=== PATIENT | female | born 1980 | race Native Hawaiian/Other Pacific Islander ===

== ENCOUNTER 2022-08-04 09:37 | Day surgery (SDC) | payer OTHER, SELFPAY ==
[2022-08-04] VITALS (14 sets, daily range): BP systolic 123–168; BP diastolic 63–74; PULSE 54–79; RESP 16–18; TEMP 36.2–36.7; O2SAT 97–100; BMI 27.5; BMI 29.7
--- NOTE | 2022-08-04 09:52 | ED_ITS ---
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 They got caught in the machine. She can feel sensation but is having significant pain. Would appreciate some ibuprofen. She is unsure of her tetanus status. Nursing staff did look in the [facility] chart and it was last given in 2012. We will update that. It is at the end of her left 2nd and 3rd digits. Nothing else was injured. She is seen with the assistance of the middle school technology teacher. This is a worker's compensation injury. Place: work Patient tetanus UTD: No Context: accidental and crush injury Associated symptoms: pain Related Data Home Medications Medication Instructions Recorded Confirmed No Known Home Medications 08/04/22 08/04/22 Allergies Allergy/AdvReac Type Severity Reaction Status Date / Time No Known Drug Allergies Allergy Verified 08/04/22 10:00 Review of Systems Status of ROS: Reports: 10 or more systems reviewed and unremarkable except as noted in History and below (Done when it was decided she would be going to the OR) and other (Coffee and a bit of bread around 7:00 a.m. this morning) Narrative: As per HPI PFSH PFSH Social History Smoking Status: Never smoker Do you use any of these nicotine containing products: None Second hand tobacco smoke exposure: No How often do you have a drink containing alcohol: never How often do you have six or more drinks on one occasion: Never AUDIT-C Alcohol total score: 0 Non-prescribed substance use: denies use service: No Exam Const: Vital Signs, click to edit/add: Vital Signs - 24 hr 08/04/22 09:57 Temperature 97.8 F Pulse Rate [Right Pulse Oximeter] 64 Respiratory Rate 18 Blood Pressure [Ri ght Upper Arm] 131/63 Pulse Oximetry 98 Oxygen Delivery Me thod Room Air Documenting provider has reviewed patient's vital signs: yes Common normals: no apparent distress, average body habitus, oriented x3, no limitations, healthy appearing, alert and well nourished Other: The left 2nd and 3rd fingers have subungual hematomas, there was lifting of the base of the nail of the 3rd finger. Right nail seems to be intact but there is some loss of the cuticle around the lateral nail bed of the 2nd finger. There is some bleeding from the base of the nail of the right 3rd finger. Seems to be the distal portions of these fingers that are involved. Does not seem to have pain below the distal phalanges of these fingers. Neurovascular is intact at this time. HENMT: Common normals: normocephalic, head/scalp atraumatic, hearing grossly normal bilaterally, external nose normal, moist oral mucous membranes, oropharynx normal, dentition normal and gingiva normal Head and scalp: normocephalic and atraumatic Nose: external nose normal Eye: Common normals: PERRL, EOMs intact bilaterally, conjunctivae normal and no scleral icterus Conjunctiva: conjunctiva(e) normal Pupil: PERRL Neck & C-Spine: Common normals: full ROM, no lymphadenopathy, supple, no meningeal signs, no JVD and thyroid normal Thyroid: thyroid normal Resp: Common normals: normal respiratory effort, no retractions, no use of accessory muscles and clear to auscultation bilaterally Auscultation: clear to auscultation bilaterally Cardio: Common normals: no JVD, regular rate, regular rhythm, S1 normal heart sound, S2 normal heart sound, no gallops, no clicks and no murmurs Rate: regular rate Rhythm: regular rhythm Heart sounds: S1 normal and S2 normal GI: Common normals: Normal to inspection, nondistended, normoactive bowel sounds present, soft to palpation and non-tender Palpation: soft Neuro: Common normals: oriented x3 Sensorium/orientation: alert Meningeal signs: no meningeal signs Course Course Hospital Course: We will x-ray these fingers looking for fractures. Have a phone call in to Orthopedics regarding this 3rd finger with the injury likely to the nail plate. Will visualize her x-rays of the fingers but do think that she may benefit from relief of the subungual hematoma of the 2nd digit. ED nail base is lifted up on the 3rd finger allowing for some extravasation of blood, there is still subungual hematoma of this finger as well. Reevaluation(s) Reevaluation #1: Have just finished reviewing with patient with the orthopedist Dr. Valencia present at this time. She has tuft fractures of the left 2nd and 3rd phalanx, patient is right-hand dominant. There is obvious nail plate injury on the 3rd finger, likely on the 2nd. Reviewing this with Orthopedics, they will plan on taking her to the OR this afternoon for repair of the nail plates. We will hold on the ibuprofen, start IV Toradol for pain management, have her be NPO. Have subsequently went over review of systems with her. As far as her past medical history, she has had a cholecystectomy, prior C-sections and a tubal ligation. Denies any chronic heart or lung issues. Has not been ill with anything. Other review systems as above. Based on my assessment of this patient, she is clear for trial of anesthesia as indicated for repair of these nail plate injuries with plan to be done with local. Time: 10:51 Vital Signs Vital signs: Initial Vital Signs Temperature 97.8 F 08/04/22 09:57 Temperature Source Temporal Artery Scan 08/04/22 09:57 Pulse Rate 64 08/04/22 09:57 Respiratory Rate 18 08/04/22 09:57 Blood Pressure 131/63 08/04/22 09:57 Blood Pressure Mean 85 08/04/22 09:57 Blood Pressure Position Sitting 08/04/22 09:57 Pulse Oximetry 98 08/04/22 09:57 Oxygen Delivery Method 08/04/22 09:57 Vital Signs Temperature 97.8 F 08/04/22 09:57 Pulse Rate 64 08/04/22 09:57 Respiratory Rate 18 08/04/22 09:57 Blood Pressure 131/63 08/04/22 09:57 Pulse Oximetry 98 08/04/22 09:57 Oxygen Delivery Method 08/04/22 09:57 Temperature 97.8 F 08/04/22 09:57 Pulse Rate 64 08/04/22 09:57 Respiratory Rate 18 08/04/22 09:57 Blood Pressure 131/63 08/04/22 09:57 Pulse Oximetry 98 08/04/22 09:57 Oxygen Delivery Method 08/04/22 09:57 MDM - Wound/Laceration Lab Data Attestation: I reviewed the patient's lab results. Labs: Lab Results 08/04/22 Range/Units 11:00 SARS-CoV-2 (PCR) Negative SARS-CoV-2 (Negative) Influenza Type A (PCR) Negative PCR FLU A (Negative) Influenza Type B (PCR) Negative PCR FLU B (Negative) RSV (PCR) Negative PCR RSV (Negative) Imaging Data X-ray left 2nd and 3rd fingers: Attestation: I have reviewed the pertinent imaging results. My impression: A my preliminary review, tuft fractures of the left 2nd and 3rd fingers. Radiologist's impression: [facility]: [facility] Facility:?[facility] Patient ID:?[id number] Site Patient ID:?[id number] Site :?[id number] Study:?XRay Extremity Left FINGERS 3 VIEWS-08/04/2022 10:35:58 AM Ordering Physician:Ramona Thorpe Final Report: Indication: Injury, pain Technique: Three views of the left index finger and long finger. Comparison: None Findings: Comminuted and displaced fractures involving the distal lakshmi of the long finger and index finger noted. Overlying soft tissue injury. Impression: Fractures of the distal lakshmi of the index finger and long finger. Dictated by Champ Castellanos MD @ 08/04/2022 10:39:52 AM (Electronic Signature) Critical Care Time Critical Care Time Critical Care Time: No Discharge Plan Discharge Clinical Impression: Fracture of finger of left hand, Laceration of finger nail bed Prescriptions: No Action No Known Home Medications
--- NOTE | 2022-08-04 10:09 | CRLHL7_ITS ---
For Patients: As a result of the Century Cures Act, medical imaging exams and procedure reports are released immediately into your electronic medical record. You may view this report before your referring provider. If you have questions, please contact your health care provider. Indication: Injury, pain Technique: Three views of the left index finger and long finger. Comparison: None Findings: Comminuted and displaced fractures involving the distal lakshmi of the long finger and index finger noted. Overlying soft tissue injury. Impression: Fractures of the distal lakshmi of the index finger and long finger. Dictated by Champ Castellanos MD @ 08/04/2022 10:39:52 AM (Electronically Signed)
[2022-08-04] MEDS: TETANUS/DIPHTH/PERTUSSIS 0.5 ML SYRINGE IM (10:59)
[2022-08-04] MEDS: KETOROLAC 15 MG/ML inj IVP (11:13)
[2022-08-04 11:43] LABS: PCR FLU A Negative PCR FLU A (Negative); PCR FLU B Negative PCR FLU B (Negative); PCR RSV Negative PCR RSV (Negative)
[2022-08-04 12:12] LABS: SARS PCR* Negative SARS-CoV-2 (Negative)
[2022-08-04] MEDS: BUPIVACAINE 0.5% 30 ML INJECTION (14:08)
[2022-08-04] MEDS: lidocaine HCL 2 % MULTIDOSE 20 ML VIAL INJECTION (14:08)
--- NOTE | 2022-08-04 15:23 | P.ORPRC_ITS ---
Procedure Note Date of procedure: 08/04/22 Procedure: Preop diagnosis: Left hand index and middle finger nail bed laceration Postop diagnosis: Left hand index and middle finger nail bed laceration Procedure: Nail bed laceration, primary repair Anesthesia: Local Surgeon: Edis Valencia MD under water assistant: ABDOULAYE Florian EBL: 5 mL Complications: None Specimens: None Drains: None Indications: The patient has a history of left hand index and middle finger crush injury with nail bed laceration. Primary repair was recommended. The risks, benefits alternatives and expected outcomes were discussed in detail. These included but were not limited to: Infection, bleeding, injury to blood vessel or nerve, venous thromboembolism. All questions were answered to their satisfaction. The patient was placed supine on the operating room table. Local anesthesia was established with a digital block using 0.5% Marcaine without epinephrine and 2% lidocaine without epinephrine. The hand was prepped and draped in usual sterile fashion. The index finger was exsanguinated, a quarter-inch [place] was used at the base of the finger as a tourniquet. The nail plate was carefully elevated off of the sterile matrix with the Nerissa and was removed. It was cleaned up and soaked in Betadine on the back table. There was a significant amount of subungual hematoma which was evacuated. The sterile matrix was irrigated with normal saline and carefully inspected. There was a complex, stellate laceration in the central aspect of the sterile matrix. The germinal matrix was inspected and was found to be normal. The nail bed laceration was repaired with several 4-0 chromic simple, interrupted sutures. This provided an excellent repair of the laceration. The nail plate was reduced under the eponychium. It was secured to the eponychium with a 4-0 nylon suture. This was supplemented with 2x 4-0 simple sutures at the distal aspect of the nail plate. The Abebe was released. Attention was then turned to the middle finger. The finger was exsanguinated, a quarter-inch [place] was used at the base of the finger as a tourniquet. The nail plate was carefully elevated off of the sterile matrix with the Nerissa and was removed. It was cleaned up and soaked in Betadine on the back table. The sterile matrix was irrigated with normal saline and carefully inspected. There was an L shaped laceration in the central aspect of the sterile matrix. The germinal matrix was inspected and was found to be normal. The sterile matrix laceration was repaired with several for-0 chromic sutures in a simple, interrupted fashion. The nail plate was reduced under the eponychium and secured with a 4-0 nylon suture, identical to the index finger. The [place] was released. A soft dressing was applied. Sponge and needle counts were correct x 2. The patient tolerated the procedure well, there were no apparent complications. They were sent to same day surgery in satisfactory condition. Plan: Use of the hand as tolerates. Discontinue the intraoperative dressing on postoperative day 3 and may get the hand wet as tolerates. Follow up in the office in 2 weeks for a wound check and suture removal.
--- NOTE | 2022-08-07 10:59 | PM.ORCN ---
History of Present Illness HPI Date Seen: 08/04/22 Requesting physician: Ila Nichols Chief complaint: lac on finger Narrative: Dr. Pacheco has requested orthopedic consultation for left hand index and middle finger injuries. The patient is 42 years old, [id number]. She got her fingers caught in a machine, work related injury today. She has never injured this fingers or had surgery on the previously. Review of Systems Narrative: The patient denies: Fever, night sweats, shaking chills, nausea, vomiting, diarrhea, chest pain, chest pressure, shortness of breath, no rash, no change in hearing or vision, no issues with bleeding or clotting PFSH PFSH Social History Smoking Status: Never smoker Do you use any of these nicotine containing products: None Second hand tobacco smoke exposure: No How often do you have a drink containing alcohol: never How often do you have six or more drinks on one occasion: Never AUDIT-C Alcohol total score: 0 Non-prescribed substance use: denies use service: No Meds Home Medications and Allergies Allergies Allergy/AdvReac Type Severity Reaction Status Date / Time No Known Drug Allergies Allergy Verified 08/04/22 10:00 Ortho Exam Narrative Exam Narrative: The patient is alert and oriented x3, in no acute distress, they are able to converse in a normal speaking voice without obvious hearing loss and with nonlabored breathing. Examination of the left hand, index and middle fingers show the nail plate has been avulsed, out from under the eponychium. There has been no bony or soft tissue amputation. The soft tissues appear viable. CMS appears normal. Results Diagnostic results Additional Comments: Three views of the left hand show tuft fractures of index and middle fingers. Assessment and Plan Assessment and plan (1) Fracture of finger of left hand: Status: Acute (2) Laceration of finger nail bed: Status: Acute Plan Assessment: Left hand, index and middle finger crush injury, with nail bed laceration Plan: I told the patient that her injuries are best treated with exploration and primary repair of her nail beds in the operating room. She has been medically cleared for surgery, therefore we will plan to take her to the operating room now.
== END 2022-08-04 15:38 | disposition home or self-care (01) ==
LOC: ED 10:55 → SS 12:26
PROVIDERS: Orthopaedic Surgery; Emergency Provider Family Medicine; Visit Provider Orthopaedic Surgery Sports Medicine
PROC: 0HQQXZZ Repair Finger Nail, External Approach (ICD-10-PCS; CPT 11760; principal; 2022-08-04 13:30)
DX: S67.191A Crushing injury of left index finger, initial encounter (principal); S61.311A Laceration without foreign body of left index finger with damage to nail, initial encounter; S61.313A Laceration without foreign body of left middle finger with damage to nail, initial encounter; W31.9XXA Contact with unspecified machinery, initial encounter; Y92.9 Unspecified place or not applicable; Y99.0 Civilian activity done for income or pay
CPT/HCPCS: 11760 ×2; 73140; 87502; 87634; 87635; 90715; 99284; J1885; J3490

== ENCOUNTER 2023-11-09 14:38 | Outpatient (CLI) | payer OTHER, SELFPAY ==
--- NOTE | 2023-11-09 15:00 | MM_ITS ---
Patient: BETSY DEL CID [facility] Facility:?[facility] Patient ID:?[id number] Site Patient ID:?[id number] Site :?[id number] Study:?XRay-Breast Bilateral 3D W/CAD-11/09/2023 8:15:51 AM Ordering Physician:Trent November Final Report: BILATERAL SCREENING MAMMOGRAM WITH COMPUTER-AIDED DETECTION AND TOMOSYNTHESIS TECHNIQUE: CC and MLO views were obtained. These mammographic images have been obtained using full-field digital technique. These mammographic images were interpreted with the benefit of computer-aided detection. Breast Tomosynthesis was used in this interpretation. COMPARISON FILM: 10/28/22, 04/17/19. FINDINGS: The breasts are heterogeneously dense, which may obscure small masses. IMPRESSION: There is no radiographic evidence for malignancy. ASSESSMENT: BI-RADS Category 1: Negative RECOMMENDATION: Routine screening mammogram in 1 year. A lay language report of this examination will be provided to the patient. Champ Castellanos M.D. Diagnostic Radiologist [email or web address] DSM/sp R& Transcribed: 5:49 p.m. SP/Dictated by: Champ Castellanos MD @ 11/10/2023 9:20:00 AM Signed by:?Champ Castellanos MD @11/10/2023 8:19:12 PM (Electronic Signature)
== END 2023-11-09 14:39 | disposition home or self-care (01) ==
LOC: MAMMO 14:39
PROVIDERS: Visit Provider Physician Assistant
DX: Z12.31 Encounter for screening mammogram for malignant neoplasm of breast (principal); R92.2 Inconclusive mammogram
CPT/HCPCS: 77063; 77067

== ENCOUNTER 2025-07-04 11:06 | Outpatient (CLI) | payer OTHER, SELFPAY ==
--- NOTE | 2025-07-04 11:30 | CRLHL7_ITS ---
For Patients: As a result of the Century Cures Act, medical imaging exams and procedure reports are released immediately into your electronic medical record. You may view this report before your referring provider. If you have questions, please contact your health care provider. INDICATION: BILATERAL SCREENING MAMMOGRAM, ASYMPTOMATIC 44 Y/O FEMALE COMPARISON: 11/09/2023, 10/28/2022, 04/17/2019 TECHNIQUE: Digital mammogram in CC and MLO projections including computer-aided detection (CAD) and tomosynthesis. BREAST COMPOSITION: The breasts are heterogeneously dense, which may obscure small masses. FINDINGS: No suspicious findings. ASSESSMENT: BI-RADS 1 Negative RECOMMENDATION: Annual screening mammogram. A lay language report of this examination will be provided to the patient. Dictated by: Champ Castellanos MD @ 07/07/2025 09:01:12 (Electronically Signed)
== END 2025-07-04 11:07 | disposition home or self-care (01) ==
LOC: MAMMO 11:06
PROVIDERS: Visit Provider Physician Assistant
DX: Z12.31 Encounter for screening mammogram for malignant neoplasm of breast (principal); R92.333 Mammographic heterogeneous density, bilateral breasts
CPT/HCPCS: 77063; 77067